=== PATIENT | female | born 1960 | race Caucasian/White ===

== ENCOUNTER 2024-08-05 10:10 | Emergency (ER) | payer OTHER ==
[~2024-08-05 10:10] MED LIST: Iopamidol 370 76% 100 ML VIAL ONE
[2024-08-05] MEDS ORDERED: methylPREDNISolone Sod Succ/PF 125 MG/2 ML VIAL ONE (11:11)
[2024-08-05] MEDS ORDERED: Sodium Chloride 0.9% 1,000 ML ONE (11:11)
[2024-08-05] MEDS ORDERED: Ipratropium/Albuterol 3 ML NEB ONE (11:11)
[2024-08-05 11:32] LABS: ALT (SGPT) 27 U/L (8-55); AST (SGOT) 31 U/L (5-34); Albumin 3.5 g/dL (3.4-4.8); Alkaline Phosphatase 99 U/L (40-110); Anion Gap 16 mmol/L (10-20); BUN (Urea Nitrogen) 16 mg/dL (9.8-20.1); Bilirubin, Total 0.2 mg/dL (0.2-1.2); Calc. Creatinine Clearance 0 mL/min (70-130); Calcium 9.1 mg/dL (7.8-10.44); Carbon Dioxide 20 mmol/L (23-31); Chloride 107 mmol/L (98-107); Estimated GFR 72; Globulin 3.9 g/dL (2.4-3.5); Glucose 103 mg/dL (80-115); Potassium 3.8 mmol/L (3.5-5.1); Protein, Total 7.4 g/dL (5.8-8.1); Sodium 139 mmol/L (136-145)
[2024-08-05 12:10] LABS: Hematocrit 42.2 % (36.0-47.0); Hemoglobin 13.3 g/dL (12.0-16.0); Mean Corpuscular HGB CONC 31.4 g/dL (32.0-36.0); Mean Corpuscular Hemoglobin 28.8 pg (27.0-31.0); Mean Corpuscular Volume 91.7 fl (78.0-98.0); Mean Platelet Volume 7.2 fL (7.4-10.4); Platelet Count 260 10x3/uL (130-400); RBC Distribution Width 12.9 % (11.5-14.5); White Blood Cell (WBC) Count 8.7 10x3/uL (4.8-10.8)
[2024-08-05 12:20] LABS: Band 2 % (5-11); Eosinophils 1 % (0-10); Hypochromia MODERATE=16-30 cells (100X) (0-5/hpf); Lymphocytes 4 % (21-51); MDiff Complete? YES; Manual Diff?? YES; Monocytes 8 % (0-10); Neutrophil 83 % (42-75); Reactive Lymphocytes 2 % (0-10)
[2024-08-05 12:21] LABS: Platelet Adequacy Comment Appears Adequate
[2024-08-05] MEDS ORDERED: LevoFLOXacin D5W 500 mg (100 mL) BAG ONE (12:39)
[2024-08-05 13:13] LABS: Troponin I Less than 0.010 ng/mL (< 0.028)
== END 2024-08-05 14:30 | disposition home or self-care (01) ==
LOC: MADERS 10:10
DX: J10.1 Influenza due to other identified influenza virus with other respiratory manifestations (principal); J44.1 Chronic obstructive pulmonary disease with (acute) exacerbation; J18.9 Pneumonia, unspecified organism; F17.210 Nicotine dependence, cigarettes, uncomplicated; E78.5 Hyperlipidemia, unspecified; Z79.51 Long term (current) use of inhaled steroids; Z79.84 Long term (current) use of oral hypoglycemic drugs; Z79.899 Other long term (current) drug therapy
CPT/HCPCS: 71046; 71275; 80053; 83880; 84484; 85025; 85379; 87428; 93005; 94640; 94760; 96361; 96365; 96375; J1956; J2919; J7030; J7620